=== PATIENT | female | born 1980 | race Caucasian/White ===

== ENCOUNTER 2023-09-13 12:42 | Outpatient (OUT) | payer MEDICARE, MEDICAID, SELFPAY ==
--- NOTE | 2023-09-13 13:00 | CA_ITS ---
The [facility] Test Date: 2023-09-13 Pat Name: APRIL LINARES Department: Room: - Gender: Female Fiber Optics Engineer: : 1980 Requested By: MO MUKHERJEE Order Number: [id number] Reading MD: KENDALL BRANCH Interpretive Statements Biphasic doppler waveforms. PVR waveforms with normal upstroke, blunted amplitude and dicortic notch Right: - normal MATT Left: - normal MATT IMpression: Normal arterial evaluation of the lower extremities without hemodynamic impairment of the B/L lower extremities at rest. (right MATT 1.20, left MATT 1.15) Electronically Signed On 09-15-2023 7:33:57 EDT by KENDALL BRANCH
== END 2023-09-13 12:43 | disposition home or self-care (01) ==
LOC: CARD 12:46
PROVIDERS: PCP Family Medicine; Visit Provider Family Medicine
DX: L97.511 Non-pressure chronic ulcer of other part of right foot limited to breakdown of skin (principal); I99.8 Other disorder of circulatory system; I73.9 Peripheral vascular disease, unspecified
CPT/HCPCS: 93922

== ENCOUNTER 2023-10-24 14:10 | Outpatient (OUT) | payer MEDICARE, MEDICAID, SELFPAY ==
--- NOTE | 2023-10-24 14:18 | XR_ITS ---
The [address] [address] Patient Name: APRIL LINARES MRN: [id number] date: 1980 Sex: F Assigned Patient Location: RAD Current Patient Location: [facility] Accession/Order Number: [id number] Exam Date: 10/24/2023 14:20 Report Date: 10/24/2023 16:11 At the request of: MO MUKHERJEE Procedure: XR ankle RT min 3V PROCEDURE: XR ankle RT min 3V COMPARISON: None. HISTORY: Sprain of right ankle S93.401A FINDINGS: BONES:No fracture, acute abnormality, or significant arthropathy. SOFT TISSUES:Moderate diffuse soft tissue swelling EFFUSION:Moderate joint effusion OTHER: Negative. XR/XR ankle RT min 3V IMPRESSION: Soft tissue swelling and joint effusion with no acute fracture Electronically authenticated by: TONI ALBARADO Date: 10/24/2023 16:11
== END 2023-10-24 14:11 | disposition home or self-care (01) ==
LOC: RAD 14:13
PROVIDERS: PCP Family Medicine; Visit Provider Family Medicine
DX: S93.401A Sprain of unspecified ligament of right ankle, initial encounter (principal); M25.471 Effusion, right ankle
CPT/HCPCS: 73610

== ENCOUNTER 2025-05-24 14:40 | Outpatient (OUT) | payer MEDICARE, MEDICAID, SELFPAY ==
--- OUTSIDE RECORDS SUMMARY | 2025-05-24 14:48 | XMS_ITS | Patient Health Record ---
Author Organization [facility] Address [address] [place], [place] [address] Care Team Providers Care Meter Reading Clerk Name Role Phone Aleta Mora Unavailable [phone] Allergies Allergen (clinical drug ingredient) Drug/Non Drug Allergy documented on EMR Reaction Allergy Type Onset Date Status Substance with penicillin structure and antibacterial mechanism of action (substance) Penicillins Unknown Drug Allergy 08/06/2012 Active Reason For Referral No Information Medications Medication SIG (Take, Route, Frequency, Duration) Notes Start Date End Date Status Aspirin 325 MG Tablet TAKE 1 TABLET BY MOUTH ROWAN LY Oral; Duration: 90 Days ActiveLevothyroxine Sodium 125 MCG TabletTAKE 1 TABLET BY MOUTH DAILY Oral; Duration: 90 DaysActiveVitamin D3 50 MCG (2000 UT) TabletTAKE 1 TABLET BY MOUTH DAILY Oral; Duration: 90 DaysActiveOmeprazole 20 MG Capsule Delayed ReleaseTAKE 1 CAPSULE BY MOUTH DAILY Oral; Duration: 90 DaysActiveLoratadine 10 MG Tablet TAKE 1 TABLET BY MOUTH DAILY Oral; Duration: 90 DaysActiveProAir HFA 108 (90 Base) MCG/ACT Aerosol SolutionINHALE 2 (TWO) puffs BY MOUTH EVERY 4 HOURS NEEDED Inhalation; Duration: 17 DaysActiveBenzonatate 200 MG CapsuleTAKE 1 CAPSULE BY MOUTH THREE TIMES DAILY NEEDED Oral; Duration: 10 DaysActive Azithromycin 250 MG TabletTAKE 2 TABLETS by mouth today, THEN take 1 TABLET once a day FOR the next 4 DAYS. Oral; Duration: 5DaysActivedexAMETHasone 6 MG Tablet TAKE 1 TABLET BY MOUTH DAILY Oral; Duration: 6 DaysActive Social History Sex Assigned At : Social History Observation Description Sex Assigned At Female Social History Additional DetailsCategorySocial InfoOptionsDetailsMigrated Social History Migrated Social History ALCOHOL: Does not give any significant history of alcohol usage, ProblemStatus: Inactive, , Caffeine Use, COMMENTS: occasionally, ProblemStatus: Active, , CAFFEINE: Consumes a minimal amount of caffeinated beverages daily, ProblemStatus: Inactive, , Current tobacco use, AttributeTitle: Never smoker, ProblemStatus: Active, , MARITAL STATUS: Single, ProblemStatus: Inactive, , No Drug Use, ProblemStatus: Active, , No significant stress issues with home, family, personal relationships, or work, ProblemStatus: Inactive, , Non Drinker/No Alcohol Use, ProblemStatus: Active, , Non Smoker/No Tobacco Use, ProblemStatus: Inactive, , Patient feels safe in relationships, ProblemStatus: Active, , SEXUAL HISTORY: Never sexually active, ProblemStatus: Inactive Problems Problem Type SNOMED Code ICD Code Onset Dates Problem Status W/U Status Risk Notes Problem Tinea pedis (5431567) Tinea pedis (B35.3) ActiveconfirmedComment:Rx clotrimazole once daily after shower, recheck in one month.,ProblemHypothyroidism (94761873)Hypothyroid (244.9) (244.9)Active confirmedProblemHypothyroidism, acquired (244.) (244)03/29/2008ctiveconfirmed Comment:c/w levothyroxine as ordered check lab f/u in 2 mos or sooner if needed paperwork [facility], ProblemLaboratory test (68713682)Laboratory examination (Z01.89)Activeconfirmed Comment:For hypothyroidism.,ProblemGastroesophageal reflux disease (166916217) GERD (gastroesophageal reflux disease) (530.81) (530.81)ActiveconfirmedProblem Conjunctivitis (2828613)Conjunctivitis (H10.9)ActiveconfirmedProblemAcute cystitis (30485438)Cystitis, acute (595.0) (595.0)Activeconfirmed Comment:Finish Cipro course. Increase fluid intake Check C&S,Story:better, ProblemDysuria (10270730)Difficult or painful urination (R30.0)Activeconfirmed Comment:Dysuria, urine is clear. Reassured, no Rx needed.,Description:Dysuria ProblemDermatitis (453384263)Dermatitis, eczematoid (L30.9)Activeconfirmed Description:EczemaProblemChapped skin (354670098)Chapped skin (T69.8XXA)Active confirmedProblemDrug intolerance (96574531)Medication intolerance (Z78.9)Active confirmedComment:clotrimazole, for feet. Needs a D/C order.,Problem Conjunctivitis (1250075)Conjunctivitis of both eyes (372.30) (372.30)Active confirmedComment:Rx ciprofloxacin eye drops for 5 days.,ProblemAcute upper respiratory infection (97520251)URI (upper respiratory infection) (465.9) (465.9)ActiveconfirmedComment:Rx's rewritten for Tylenol, as requested by the staff; Also, at her mother's request, will D/C the ibuprofen and HC for her face;,ProblemAcute upper respiratory infection (23035710)Acute upper respiratory infection (J06.9)ActiveconfirmedProblemHistory and physical examination, school (63096376)Examination for school or camp (Z02.9)ActiveconfirmedComment:No problems identified; full participation as she is able.,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 Mother would prefer not to use any medications at this time.,ProblemOcclusion of cerebral artery with stroke (9072635739003)CVA (cerebral vascular accident) (434.91) (434.91)Activeconfirmed Comment:Functionallly improved, back to baseline, with normal ADLs. Discontinue PT.,ProblemAcute conjunctivitis of both eyes (5328056511)Acute conjunctivitis of both eyes (H10.33)Activeconfirmed Comment:RTC if problem persists or worsens. Form completed for care home., ProblemAllergic rhinitis (39126877)Allergic rhinitis (J30.9)Activeconfirmed ProblemDermatitis (828481908)Dermatitis (L30.9)ActiveconfirmedProblemHistory and physical examination, administrative (25704168)General medical examination for administrative purposes (V70.3) (V70.3)Activeconfirmed Comment:For camp. NO restrictions, forms completed (See copies in Scanned Documents), ProblemAmenorrhea (51851341)Absence, menstruation (626.0) (626.0)03/29/2008 ActiveconfirmedProblemHistory of cardiac surgery (878490222)H/O heart surgery (Z98.890)ActiveconfirmedComment:Percutaneous cath repair, doing well.,Description:History of heart surgeryProblemSinusitis, chronic (473.) (473) 03/29/2008ctiveconfirmedProblemBody tinea (46528052)Body tinea (B35.4)Active confirmedComment:Improving. Continue terbinafine, but just once daily until rash is gone. (they have plentlyof it left.),Description:Tinea corporisProblem Mucopurulent conjunctivitis (367576559)[place] eye (372.03) (372.03)Activeconfirmed ProblemGeneral examination of patient (265786726)Routine general medical examination at a health care facility (V70.0) (V70.0)ActiveconfirmedProblem Contraception care management (032090825)Contraception (V25.9) (V25.9)Active confirmedProblemReturn to work evaluation (Z76.89)ActiveconfirmedProblem Constipation (23106699)CN (constipation) (K59.00)Activeconfirmed Description:ConstipationProblemPrescription renewal (353772741)Medication refill (Z76.0)ActiveconfirmedProblemImpacted cerumen (70160854)Cerumen impaction (380.4) (380.4)ActiveconfirmedComment:right side completely resolved, the left with some residual wax, unable to easily irrigate clean. Will have them CONTINUE to use the drops in the left ear only, for 5 days, thenfollow up for recheck. She may need periodic 'prophylactic' irrigation in the future.,ProblemMedication refill (V68.1) (V68.1)ActiveconfirmedComment:clarification of acetaminophen order.,ProblemFebrile (933773953)Febrile (R50.9)ActiveconfirmedDescription:Fever ProblemRhinitis, allergic (477.) (477)04/07/2009ctiveconfirmedProblemJittery (R45.0)ActiveconfirmedComment:Possiblly related to the decongestant. Will just use plain loratadine.,Description:NervousnessProblemComplete trisomy 21 syndrome (03249714)Down's syndrome (758.0) (758.0)11/18/2007ctiveconfirmedProblem Gastroesophageal reflux disease (324281054)Reflux, esophageal (530.81) (530.81) 04/21/2009ctiveconfirmedProblemObesity (disorder) (413001755)Overweight and obesity (E66.3)03/29/2008ctiveconfirmedProblemJoint pain (27459908)Ache in joint (M25.50)11/18/2007Problem resolvedconfirmedDescription:Pain in joint ProblemImpacted cerumen (47773860)Cerumen impaction (H61.20)03/29/2008Problem resolvedconfirmedDescription:Impacted cerumenProblemAbdominal pain (52810033) Abdominal pain (R10.9)08/01/2007Problem resolvedconfirmedProblemImpaction, intestine (560.3) (560.3)05/07/2008Problem resolvedconfirmedProblemAcute upper respiratory infection (80394185)Acute upper respiratory infection of multiple sites (J06.9)07/27/2008Problem resolvedconfirmedProblemSinusitis, acute (461.) (461)08/01/2007Problem resolvedconfirmedProblemConjunctivitis, acute (372.0) (372.0)09/01/2008Problem resolvedconfirmed Plan Of Treatment No Information Insurance Providers Payer Name Payer Address Payer Phone Subscriber Number Group Number Insured Name Patient Relationship to Insured Coverage Start Date Coverage End Date DMedicaid [address] [place], [place] [id number] Gary Howard - patient is the [id number] 2022 Medical (General) History Medical History History ICD Code Absence, menstruation (626.0), ProblemSt atus: Active, , Cerebrovascular Accident, COMMENTS: 2011, ProblemStatus: Active, ,Down's syndrome (758.0), ProblemStatus: Active, ,Hypothyroidism, acquired (244.), ProblemStatus: Active, ,Overweight and obesity, ProblemStatus: Active, ,Reflux, esophageal (530.81), ProblemStatus: Active, ,Rhinitis, allergic (477.), ProblemStatus: Active, ,Sinusitis, chronic (473.), ProblemStatus: Active, , Ventricular Septal Defect, ProblemStatus: Active, ,Surgical History Surgery Date(Month/Year) Heart Surgery, ProblemStatus: Active, S/P tonsillectomy and adenoidectomy (V45.89), ProblemStatus: Active,
--- OUTSIDE RECORDS SUMMARY | 2025-05-24 14:48 | XMS_ITS | Clinical Summary ---
Author Organization [facility] Address [address] [place] [address] Care Team Providers Care Petroleum Laboratory Technician Name Role Phone Unavailable Primary Care Provider Unavailabl e Allergies Active AllergyReactionsCriticalityNoted ZubtThsyzhznNexzveywxlj41/13/2009 rash Medications * This document contains information received from the source organization and may not represent a complete record from that organization. MedicationSigDispense QuantityRefillsLast FilledStart DateEnd DateStatus COMPOUNDED PRESCRIPTION control microgestin 1.5-30 mg.-mcg 1 tab nzkju731ctive LAMOTRIGINE 200 MG TAB take one daily at mwmiily496ctive acetaminophen(TYLENOL EXTRA STRENGTH 500 MG TAB) Take two(2) tablets every six(6) hours as needed for pain.ctive IBUPROFEN 200 MG TAB Take 1-2 tablet's) every four(4) to six(6) hours as needed for pain. Active LEVOTHYROXINE 100 MCG TAB Take one(1) tablet daily.ctive docusate sodium(COLACE 100 MG CAP) Take one(1) tablet once ogxls142ctive loratadine(CLARITIN 10 MG TAB) Take one(1) tablet daily as needed for allergy symptoms.ctive mometasone furoate(NASONEX 50 MCG/ACTUATION SPRAY) Serafina twice in each nostril once daily.ctive lactulose(ENULOSE 10 GRAM/15 ML ORAL SOLN) 15 cc. po daily as needed hold if has bm a agt009ctive MULTIVITAMIN TAB Take one(1) tablet daily.ctive clindamycin phosphate(CLEOCIN T 1 % TOPICAL GEL) as trhgqn013ctive polyethylene glycol 3350(MIRALAX 100 % ORAL POWDER) 17 grams in juice or fluid as needed if no bm in 2 mxql972ctive Active Problems ProblemNoted DateDiagnosed DateOther and unspecified anterior pituitary ilxceewpqawtj68/13/2009Unspecified grerepmgpzllkh48/13/2009Down's syndrome 07/16/2008 Social History Tobacco UseTypesPacks/DayYears UsedDateSmoking Tobacco: Never Assessed CommentsNoSex and Gender InformationValueDate RecordedSex Assigned at BirthNot on fileLegal LimUbgmuh17/02/2012 8:02 AM ESTGender IdentityNot on fileSexual OrientationNot on file Last Filed Vital Signs Vital SignReadingTime TakenCommentsBlood Laecftxl408/70007/16/2008 10:45 AM EST Bzbal603207/16/2008 10:45 AM ESTTemperature--Respiratory Rate--Oxygen Saturation-- Inhaled Oxygen Concentration--Euxkhk83.6 kg (182 lb 3.2 oz)07/16/2008 10:45 AM SSOVitoko123 cm (4' 11.06 )07/16/2008 10:45 AM ESTBody Mass Index36.7307/16/2008 10:45 AM EST Plan of Treatment Health MaintenanceDue DateLast DoneCommentsAnxiety Slevclgvi45/04/1998Depression Lclkzxbpk82/04/1998HIV Umikbvrpd98/04/1998Hepatitis C Gqpsudvwv78/04/1998 DTaP,Tdap,Td Vaccine (1 - Tdap)1998Hepatitis B Vaccine (1 of 3 - 19+ 3- dose series)1998Cervical Cancer Lvrbvdfbk41/04/2001HPV Vaccine (1 - 3-dose SCDM series)2006Mammogram Cuuncqwyq84/04/2020CT Wkhxnpggcplq17/04/2025 Cologuard (FIT-DNA)06/06/20248082Gnuydkjtdza85/04/2025olorectal Cancer Screening 2024Diabetes Yyqucxkrt01/04/2025Fecal Occult Blood2024Lipid Mspwztlbk75/04/8320Pndhpdgiefbnw69/04/2025ovid-19 Vaccine ( season) 2025Influenza Vaccine (#1)2025 Insurance MemberSubscriberPlan / Payer (Effective 2017-Present)Name:Kaylen Howard Relation to Subscriber:SpouseName:JACKLYN GRANT Date of :1952 (Home) Address: [address] [place] [address] Payer ID:Not on file Group ID:Not on file Type:Indemnity Address: [place] [id number]
--- OUTSIDE RECORDS SUMMARY | 2025-05-24 14:48 | XMS_ITS | Clinical Summary ---
Author Organization [facility] Address [address] [place] [address] Care Team Providers Care Plate Grainer Name Role Phone Jose Alberto MD Primary Care Provider [phone] Jose Alberto MD Unavailable Allergies No known active allergies Medications MedicationSigDispense QuantityRefillsLast FilledStart DateEnd DateStatus Docusate Sodium (DSS) 100 MG capsule Take 100 mg by mouth in the morning.Active aspirin 325 MG tablet Indications:Personal history of (corrected) congenital malformations of heart and circulatory systemTAKE 1 TABLET BY MOUTH DAILY 90 tablet 4Active cholecalciferol (Vitamin D-3) 50 MCG (1999) tablet Indications:Mild vitamin D deficiencyTAKE 1 TABLET BY MOUTH IN THE MORNING 30 tablet 4Active omeprazole (PriLOSEC) [address] capsule Indications:Gastro-esophageal reflux disease without esophagitisTAKE 1 CAPSULE BY MOUTH DAILY 90 capsule 5Active fludrocortisone (Florinef) 0.1 MG tablet Indications:Autonomic dysfunctionTAKE 1 TABLET BY MOUTH DAILY 30 tablet 5Active Allergy Relief 10 MG tablet Indications:Allergic rhinitis due to pollenTAKE 1 TABLET BY MOUTH DAILY 90 tablet 5Active levothyroxine (Synthroid, Levoxyl) 125 MCG tablet Indications:Hypothyroidism, unspecifiedTAKE 1 TABLET BY MOUTH DAILY 90 tablet 5Active fluticasone (Flonase) 50 MCG/ACT nasal spray Indications:Seasonal allergic rhinitis due to pollenAdminister 2 (TWO) sprays into each nostril Daily Shake gently. Before first use, prime pump. Afteruse, clean tip and replace cap 16 g 5Active Active Problems ProblemNoted DateDiagnosed DateAbscess of right leg01/19/2025 Assessment & Plan (01/19/2025 2:07 PM EDT): Recent bump and seemed to have abscess but resolved. Monitor. In future try neosporin. Autonomic txdeyllebtj66/20/2024 Assessment & Plan (10/21/2023 11:34 AM EDT): Multiple syncopal episodes and BP low. Not able to describe symptoms but likely NSC. Start florinefand continue with increased fluids. Encounter for long-term (current) use of upizemvjnvu56/30/2024Obesity (BMI 30-39.9)10/01/2023hronic rrduwhxmgzzf26/28/2024 Assessment & Plan (10/06/2024 2:23 PM EDT): Occasional symptoms and increase fiber. Increase water intake. Use miralax PRN. Assessment & Plan (03/30/2024 3:23 PM EDT): Occasional symptoms and increase fiber. Increase water intake. Use miralax PRN. Assessment & Plan (10/01/2023 3:13 PM EDT): Occasional symptoms and increase fiber. Increase water intake. Use miralax PRN. Down's syndrome ([facility])08/29/2023 Assessment & Plan (10/06/2024 2:23 PM EDT): No behavior problems and monitor. Assessment & Plan (03/30/2024 3:23 PM EDT): No behavior problems and monitor. Assessment & Plan (10/01/2023 3:13 PM EDT): No behavior problems and monitor. Assessment & Plan (08/29/2023 3:30 PM EDT): Patient not able to effectively communicate and need testing. Gastroesophageal reflux disease without eokfwhrcfhx87/28/2024 Assessment & Plan (10/06/2024 2:23 PM EDT): Symptoms controlled with omeprazole and continue. Assessment & Plan (03/30/2024 3:23 PM EDT): Symptoms controlled with omeprazole and continue. Assessment & Plan (10/01/2023 3:14 PM EDT): Symptoms controlled with omeprazole and continue. Adult tcgltumfvszffb37/28/2024 Assessment & Plan (03/30/2024 3:22 PM EDT): Due to repeat labs. Assessment & Plan (10/01/2023 3:13 PM EDT): Due to repeat labs. Allergic rhinitis due to ibslfe5508/29/2023 Assessment & Plan (10/06/2024 2:23 PM EDT): Symptoms controlled with medication and continue. Assessment & Plan (03/30/2024 3:22 PM EDT): Symptoms controlled with medication and continue. Assessment & Plan (10/01/2023 3:13 PM EDT): Symptoms controlled with medication and continue. Vitamin D ockvhjxlgf12/28/2024 Resolved Problems ProblemNoted DateDiagnosed DateResolved DateInfluenza A0/ Assessment & Plan (07/30/2024 4:32 PM EST): Positive for influenza A and start tamiflu. Start prednisone for inflammation. Use sudafed or otherdecongestants as needed. Use Robitussin or Robitussin-DM for cough. Can use afrin for congestion but no longer than 3 days. Can use Mucinex to bring up phlegm. Use Motrin or Tylenol as needed for fever, aches, or pains. Increase fluid intake and rest. Should improve over next 5-7 days and if no better or worse call for re-evaluation. Right ankle mblbxu32 Assessment & Plan (10/21/2023 11:35 AM EDT): Recent injury and mild swelling. No point tenderness. Ice and elevate. Use motrin. Use LY wrap forsupport. If no improvement may need PT. Near xyxrrlj95Tinea pedis of both feet08/28/ Ischemia of toe Assessment & Plan (08/29/2023 3:29 PM EDT): Developed ulcer of toe and concerning for ischemia. Start bactrim for possible infection. Check duplex US lower Extremity. Ulcer of toe of right foot, limited to breakdown of skin/ Assessment & Plan (08/29/2023 3:29 PM EDT): Developed ulcer of toe and concerning for ischemia. Start bactrim for possible infection. Check duplex US lower Extremity. Lpzktylgiwqq95 Social History Tobacco UseTypesPacks/DayYears UsedDateSmoking Tobacco: NeverSmokeless Tobacco: Never Tobacco Cessation:Counseling Given: Not Answered CommentsUnknownSex and Gender InformationValueDate RecordedSex Assigned at BirthNot on fileLegal DjuAkdiud79/15/2023 8:11 PM EDTGender IdentityNot on fileSexual OrientationNot on file Last Filed Vital Signs Vital SignReadingTime TakenCommentsBlood Hqqdstrx532/64001/19/2025 1:34 PM EDT Lgrve0911/19/2025 1:34 PM PBYYeoefrsfmwv05.4 ??C (97.5 ??F)01/19/2025 1:34 PM EDTRespiratory Xhem744501/19/2025 1:34 PM EDTOxygen Petgpnttcg54%01/19/2025 1:34 PM EDTInhaled Oxygen Concentration--Fxsclv03.6 kg (160 lb)01/19/2025 1:34 PM EDT Moxvgp264.8 cm (4' 9 )01/19/2025 1:34 PM EDTBody Mass Index34.62001/19/2025 1:34 PM EDT Plan of Treatment Health MaintenanceDue DateLast DoneCommentsCT Rlpntjkwsyjq34/04/1980Colonoscopy 1979FIT-DNA1979FIT1979FOBT1979 8229Hajvzwxlthbag66/04/1980Pap Smear2000Cervical Cancer Zpszusnii65/04/2010HPV/Jnjvun5006/06/2009Mammogram 2019COVID-19 Vaccine ( season), 06/16/2020 Influenza Vaccine (#1), 03/13/2019, 03/27/2018Medicare Annual Wellness (AWV) (Patient Refused)Colorectal Cancer Krqizamiq81/06/2026Postponed from 1979 (Patient Refused)Pneumococcal Vaccine: Pediatrics (0 to 5 Years) and At-Risk Patients (6 to 64 Years)Aged Out No longer eligible based on patient's age to complete this topic Insurance Care Teams Team MemberRelationshipSpecialtyStart DateEnd Date Jose Alberto MD PCP - [facility]08/29/23 Jose Alberto MD [address] [place] [address] PCP - [facility]07/10/24
--- NOTE | 2025-05-24 14:49 | XR_ITS ---
The [address] [address] Patient Name: APRIL LINARES MRN: [id number] date: 1980 Sex: F Assigned Patient Location: [facility] Current Patient Location: Accession/Order Number: [id number] Exam Date: 05/24/2025 15:07 Report Date: 05/25/2025 10:31 At the request of: MO MUKHERJEE MD Procedure: XR hip BI w PEL 1V ADULT PELVIS WITH BILATERAL HIPS - 5 views CLINICAL HISTORY: Bilateral hip pain, greater on the left. No reported injury COMPARISON: None AP view of the pelvis as well as AP and frog-lateral views of both hips were obtained. No fracture, dislocation or bony destruction is seen. The hip joint spaces are symmetric. There is no significant hypertrophy. Sclerosis is seen at the SI joints. The soft tissues are unremarkable. XR/XR hip BI w PEL 1V IMPRESSION: NO ACUTE PLAIN FILM FINDINGS. Impression dictated by: Cheyenne Raymond M.D. 05/25/2025 10:31 AM Dictation Location: [employer] Electronically authenticated by: [id number] Date: 05/25/2025 10:31
== END 2025-05-24 14:41 | disposition home or self-care (01) ==
LOC: RAD 14:43
PROVIDERS: PCP Family Medicine; Visit Provider Family Medicine
DX: M16.12 Unilateral primary osteoarthritis, left hip (principal); M25.551 Pain in right hip
CPT/HCPCS: 73523

== ENCOUNTER 2025-05-26 14:09 | Emergency (ER) | payer MEDICARE, MEDICAID, SELFPAY ==
[2025-05-26 14:19] VITALS: BP 155/76; PULSE 76; TEMP 36.6; O2SAT 100; BMI 33.5
--- OUTSIDE RECORDS SUMMARY | 2025-05-26 14:38 | XMS_ITS | Clinical Summary ---
Author Organization [facility] Healthcare Address [address] [place] [address] Care Team Providers Care Risk Control Analyst Name Role Phone Jose Alberto MD Primary Care Provider [phone] Jose Alberto MD Unavailable Allergies No known [...] resolved. Monitor. In future try neosporin. Autonomic ndoeerklrfc38/20/2024 Assessment & Plan (10/21/2023 11:34 AM EDT): Multiple syncopal episodes and BP low. Not able to describe symptoms but likely NSC. Start florinefand continue with increased fluids. Encounter for long-term (current) use of qkmpxmbgnmy90/30/2024Obesity (BMI 30-39.9)10/01/2023hronic esegkczxkzth30/28/2024 Assessment & Plan (10/06/2024 2:23 PM EDT): Occasional symptoms and increase fiber. Increase water intake. Use miralax PRN. Assessment & Plan (03/30/2024 3:23 PM EDT): Occasional symptoms and increase fiber. Increase water intake. Use miralax PRN. Assessment & Plan (10/01/2023 3:13 PM EDT): Occasional symptoms and increase fiber. Increase water intake. Use miralax PRN. Down's syndrome ([facility])08/29/2023 Assessment & Plan (10/06/2024 2:23 PM EDT): No behavior problems and monitor. Assessment & Plan (03/30/2024 3:23 PM EDT): No behavior problems and monitor. Assessment & Plan (10/01/2023 3:13 PM EDT): No behavior problems and monitor. Assessment & Plan (08/29/2023 3:30 PM EDT): Patient not able to effectively communicate and need testing. Gastroesophageal reflux disease without cmclihbhuhh20/28/2024 Assessment & Plan (10/06/2024 2:23 PM EDT): Symptoms controlled with omeprazole and continue. Assessment & Plan (03/30/2024 3:23 PM EDT): Symptoms controlled with omeprazole and continue. Assessment & Plan (10/01/2023 3:14 PM EDT): Symptoms controlled with omeprazole and continue. Adult ywrkbfsvkmtlhd75/28/2024 Assessment & Plan (03/30/2024 3:22 PM EDT): Due to repeat labs. Assessment & Plan (10/01/2023 3:13 PM EDT): Due to repeat labs. Allergic rhinitis due to hofixd7708/29/2023 Assessment & Plan (10/06/2024 2:23 PM EDT): Symptoms controlled with medication and continue. Assessment & Plan (03/30/2024 3:22 PM EDT): Symptoms controlled with medication and continue. Assessment & Plan (10/01/2023 3:13 PM EDT): Symptoms controlled with medication and continue. Vitamin D xakxotkqvo04/28/2024 Resolved Problems ProblemNoted DateDiagnosed DateResolved DateInfluenza A0/ [...] or worse call for re-evaluation. Right ankle zehjpp74 Assessment & Plan (10/21/2023 11:35 AM EDT): Recent injury and mild swelling. No point tenderness. Ice and elevate. Use motrin. Use LY wrap forsupport. If no improvement may need PT. Near uojntpp08Tinea pedis of both feet08/28/ Ischemia of toe [...] possible infection. Check duplex US lower Extremity. Zunagjjfrdcy42 Social History Tobacco UseTypesPacks/DayYears UsedDateSmoking Tobacco: NeverSmokeless Tobacco: Never Tobacco Cessation:Counseling Given: Not Answered CommentsUnknownSex and Gender InformationValueDate RecordedSex Assigned at BirthNot on fileLegal XrrRshkfp61/15/2023 8:11 PM EDTGender IdentityNot on fileSexual OrientationNot on file Last Filed Vital Signs Vital SignReadingTime TakenCommentsBlood Uksiurhc721/64001/19/2025 1:34 PM EDT Snvnm9613/19/2025 1:34 PM THWAyqzuyqadce35.4 ??C (97.5 ??F)01/19/2025 1:34 PM EDTRespiratory Xrdn768901/19/2025 1:34 PM EDTOxygen Hbkeyamglo02%01/19/2025 1:34 PM EDTInhaled Oxygen Concentration--Snpiqb38.6 kg (160 lb)01/19/2025 1:34 PM EDT Glrkft359.8 cm (4' 9 )01/19/2025 1:34 PM EDTBody Mass Index34.62001/19/2025 1:34 PM EDT Plan of Treatment Health MaintenanceDue DateLast DoneCommentsCT Cyahfnoewmeh55/04/1980Colonoscopy 1979FIT-DNA1979FIT1979FOBT1979 2728Ddxlccucebysk01/04/1980Pap Smear2000Cervical Cancer Yttzltpha33/04/2010HPV/Caemvz2406/06/2009Mammogram 2019Influenza Vaccine (#1), 03/13/2019, 03/27/2018 Medicare Annual Wellness (AWV) (Patient Refused)Colorectal Cancer Vjtxudfio91/06/2026Postponed from 1979 (Patient Refused) Pneumococcal Vaccine: Pediatrics (0 to 5 Years) and At-Risk Patients (6 to 64 Years)Aged OutNo longer eligible based on patient's age to complete this topic Insurance Care Teams Team MemberRelationshipSpecialtyStart DateEnd Jose Alberto MD [facility]08/29/23 Jose Alberto MD [address] [place] [address] [facility]07/10/24
--- OUTSIDE RECORDS SUMMARY | 2025-05-26 14:38 | XMS_ITS | Clinical Summary ---
Author Organization [facility] Address [address] [place] [address] Care Team Providers Care Crm Administrator Name Role Phone Unavailable Primary Care Provider Unavailabl e Allergies Active AllergyReactionsCriticalityNoted FuzuOldzcyxgCxyzcwixruy81/13/2009 rash Medications * This document contains information received from the source organization and may not represent a complete record from that organization. MedicationSigDispense QuantityRefillsLast FilledStart DateEnd DateStatus COMPOUNDED PRESCRIPTION control microgestin 1.5-30 mg.-mcg 1 tab eyvak227ctive LAMOTRIGINE 200 MG TAB take one daily at llvvknp458ctive acetaminophen(TYLENOL EXTRA STRENGTH 500 MG TAB) Take two(2) tablets every six(6) hours as needed for pain.ctive IBUPROFEN 200 MG TAB Take 1-2 tablet's) every four(4) to six(6) hours as needed for pain. Active LEVOTHYROXINE 100 MCG TAB Take one(1) tablet daily.ctive docusate sodium(COLACE 100 MG CAP) Take one(1) tablet once lzppu315ctive loratadine(CLARITIN 10 MG TAB) Take one(1) tablet daily as needed for allergy symptoms.ctive mometasone furoate(NASONEX 50 MCG/ACTUATION SPRAY) [place] twice in each nostril once daily.ctive lactulose(ENULOSE 10 GRAM/15 ML ORAL SOLN) 15 cc. po daily as needed hold if has bm a eaf944ctive MULTIVITAMIN TAB Take one(1) tablet daily.ctive clindamycin phosphate(CLEOCIN T 1 % TOPICAL GEL) as xsbfwx758ctive polyethylene glycol 3350(MIRALAX 100 % ORAL POWDER) 17 grams in juice or fluid as needed if no bm in 2 jopt157ctive Active Problems ProblemNoted DateDiagnosed DateOther and unspecified anterior pituitary llijipwwmfzpa63/13/2009Unspecified /13/2009Down's syndrome 07/16/2008 Social History Tobacco UseTypesPacks/DayYears UsedDateSmoking Tobacco: Never Assessed CommentsNoSex and Gender InformationValueDate RecordedSex Assigned at BirthNot on fileLegal ObcNsutqb31/02/2012 8:02 AM ESTGender IdentityNot on fileSexual OrientationNot on file Last Filed Vital Signs Vital SignReadingTime TakenCommentsBlood Wiinlrmt679/70007/16/2008 10:45 AM EST Nldng024007/16/2008 10:45 AM ESTTemperature--Respiratory Rate--Oxygen Saturation-- Inhaled Oxygen Concentration--Upseub57.6 kg (182 lb 3.2 oz)07/16/2008 10:45 AM TXEJifauk386 cm (4' 11.06 )07/16/2008 10:45 AM ESTBody Mass Index36.7307/16/2008 10:45 AM EST Plan of Treatment Health MaintenanceDue DateLast DoneCommentsAnxiety Nsltvzrrw92/04/1998Depression Woygwmxfj48/04/1998HIV Fgvoudpoi24/04/1998Hepatitis C Xzfvzijoo48/04/1998 DTaP,Tdap,Td Vaccine (1 - Tdap)1998Hepatitis B Vaccine (1 of 3 - 19+ 3- dose series)1998Cervical Cancer Woslowbsf80/04/2001HPV Vaccine (1 - 3-dose SCDM series)2006Mammogram Jngtacgxa74/04/2020CT Bpazarkgptzl50/04/2025 Cologuard (FIT-DNA)06/06/20246302Bodswffjjkh27/04/2025olorectal Cancer Screening 2024Diabetes Pimudownm87/04/2025Fecal Occult Blood2024Lipid Ushkpjuop84/04/9590Gvjckydljiytl87/04/2025ovid-19 Vaccine ( season) 2025Influenza Vaccine (#1)2025 Insurance MemberSubscriberPlan / Payer (Effective 2017-Present)Name:Kaylen Howard Relation to Subscriber:SpouseName:JACKLYN GRANT Date of :1952 (Home) Address: [address] [place] [address] Payer ID:Not on file Group ID:Not on file Type:Indemnity Address: [place] [id number]
--- OUTSIDE RECORDS SUMMARY | 2025-05-26 14:38 | XMS_ITS | Patient Health Record ---
Author Organization [facility] Address [address] [place] [place], [place] [id number] Care Team Providers Care Data Reduction Technician Name Role Phone Aleta Mora Unavailable [phone] Allergies Allergen (clinical drug ingredient) Drug/Non Drug [...] W/U Status Risk Notes Problem Tinea pedis (9880508) Tinea pedis (B35.3) ActiveconfirmedComment:Rx clotrimazole once daily after shower, recheck in one month.,ProblemHypothyroidism (78868306)Hypothyroid (244.9) (244.9)Active confirmedProblemHypothyroidism, acquired (244.) (244)03/29/2008ctiveconfirmed Comment:c/w levothyroxine as ordered check lab f/u in 2 mos or sooner if needed paperwork completed [facility], ProblemLaboratory test (44078957)Laboratory examination (Z01.89)Activeconfirmed Comment:For hypothyroidism.,ProblemGastroesophageal reflux disease (310468384) GERD (gastroesophageal reflux disease) (530.81) (530.81)ActiveconfirmedProblem Conjunctivitis (8973676)Conjunctivitis (H10.9)ActiveconfirmedProblemAcute cystitis (88688809)Cystitis, acute (595.0) (595.0)Activeconfirmed Comment:Finish Cipro course. Increase fluid intake Check C&S,Story:better, ProblemDysuria (35688479)Difficult or painful urination (R30.0)Activeconfirmed Comment:Dysuria, urine is clear. Reassured, no Rx needed.,Description:Dysuria ProblemDermatitis (801696997)Dermatitis, eczematoid (L30.9)Activeconfirmed Description:EczemaProblemChapped skin (076036974)Chapped skin (T69.8XXA)Active confirmedProblemDrug intolerance (13368905)Medication intolerance (Z78.9)Active confirmedComment:clotrimazole, for feet. Needs a D/C order.,Problem Conjunctivitis (5703154)Conjunctivitis of both eyes (372.30) (372.30)Active confirmedComment:Rx ciprofloxacin eye drops for 5 days.,ProblemAcute upper respiratory infection (62500269)URI (upper respiratory infection) (465.9) (465.9)ActiveconfirmedComment:Rx's rewritten for Tylenol, as requested by the staff; Also, at her mother's request, will D/C the ibuprofen and HC for her face;,ProblemAcute upper respiratory infection (87869439)Acute upper respiratory infection (J06.9)ActiveconfirmedProblemHistory and physical examination, school (65774313)Examination for school or camp (Z02.9)ActiveconfirmedComment:No problems identified; full participation as she is able.,ProblemComplete trisomy 21 syndrome (94470547)Down syndrome (758.0) (758.0)Activeconfirmed Comment:Stable, but with some behavioral issues. Mother would prefer not to use any medications at this time.,ProblemOcclusion of cerebral artery with stroke (0096798411528)CVA (cerebral vascular accident) (434.91) (434.91)Activeconfirmed Comment:Functionallly improved, back to baseline, with normal ADLs. Discontinue PT.,ProblemAcute conjunctivitis of both eyes (7361710910)Acute conjunctivitis of both eyes (H10.33)Activeconfirmed Comment:RTC if problem persists or worsens. Form completed for shelter., ProblemAllergic rhinitis (16708294)Allergic rhinitis (J30.9)Activeconfirmed ProblemDermatitis (957110512)Dermatitis (L30.9)ActiveconfirmedProblemHistory and physical examination, administrative (40636167)General medical examination for administrative purposes (V70.3) (V70.3)Activeconfirmed Comment:For camp. NO restrictions, forms completed (See copies in Scanned Documents), ProblemAmenorrhea (41636596)Absence, menstruation (626.0) (626.0)03/29/2008 ActiveconfirmedProblemHistory of cardiac surgery (922172636)H/O heart surgery (Z98.890)ActiveconfirmedComment:Percutaneous cath repair, doing well.,Description:History of heart surgeryProblemSinusitis, chronic (473.) (473) 03/29/2008ctiveconfirmedProblemBody tinea (57275488)Body tinea (B35.4)Active confirmedComment:Improving. Continue terbinafine, but just once daily until rash is gone. (they have plentlyof it left.),Description:Tinea corporisProblem Mucopurulent conjunctivitis (458677065)Baldwin eye (372.03) (372.03)Activeconfirmed ProblemGeneral examination of patient (011832254)Routine general medical examination at a health care facility (V70.0) (V70.0)ActiveconfirmedProblem Contraception care management (929675260)Contraception (V25.9) (V25.9)Active confirmedProblemReturn to work evaluation (Z76.89)ActiveconfirmedProblem Constipation (87601681)CN (constipation) (K59.00)Activeconfirmed Description:ConstipationProblemPrescription renewal (517563618)Medication refill (Z76.0)ActiveconfirmedProblemImpacted cerumen (29104722)Cerumen impaction (380.4) (380.4)ActiveconfirmedComment:right side completely resolved, the left with some residual wax, unable to easily irrigate clean. Will have them CONTINUE to use the drops in the left ear only, for 5 days, thenfollow up for recheck. She may need periodic 'prophylactic' irrigation in the future.,ProblemMedication refill (V68.1) (V68.1)ActiveconfirmedComment:clarification of acetaminophen order.,ProblemFebrile (158429275)Febrile (R50.9)ActiveconfirmedDescription:Fever ProblemRhinitis, allergic (477.) (477)04/07/2009ctiveconfirmedProblemJittery (R45.0)ActiveconfirmedComment:Possiblly related to the decongestant. Will just use plain loratadine.,Description:NervousnessProblemComplete trisomy 21 syndrome (83902885)Down's syndrome (758.0) (758.0)11/18/2007ctiveconfirmedProblem Gastroesophageal reflux disease (811527485)Reflux, esophageal (530.81) (530.81) 04/21/2009ctiveconfirmedProblemObesity (disorder) (120850340)Overweight and obesity (E66.3)03/29/2008ctiveconfirmedProblemJoint pain (93640045)Ache in joint (M25.50)11/18/2007Problem resolvedconfirmedDescription:Pain in joint ProblemImpacted cerumen (15417033)Cerumen impaction (H61.20)03/29/2008Problem resolvedconfirmedDescription:Impacted cerumenProblemAbdominal pain (59435498) Abdominal pain (R10.9)08/01/2007Problem resolvedconfirmedProblemImpaction, intestine (560.3) (560.3)05/07/2008Problem resolvedconfirmedProblemAcute upper respiratory infection (33234142)Acute upper respiratory infection of multiple sites (J06.9)07/27/2008Problem resolvedconfirmedProblemSinusitis, acute (461.) (461)08/01/2007Problem resolvedconfirmedProblemConjunctivitis, acute (372.0) (372.0)09/01/2008Problem resolvedconfirmed Plan Of Treatment No Information Insurance Providers Payer Name Payer Address Payer Phone Subscriber Number Group Number Insured Name Patient Relationship to Insured Coverage Start Date Coverage End Date DMedicaid [address] [place], [place] [id number] Gary Howard - patient is the [id number] 2022 Medical (General) History Medical History History [...]
--- OUTSIDE RECORDS SUMMARY | 2025-05-26 14:38 | XMS_ITS | Clinical Summary ---
Author Organization [facility] tem Address [facility] [address] [place] [address] Care Team Providers Care Judicial Clerk Name Role Phone Twin Terrell MD Primary Care Provider Allergies Active AllergyReactionsCriticalityNoted WmchHfqasxnnVlgxaytieuy87/11/2018 Medications MedicationSigDispense QuantityRefillsLast FilledStart DateEnd DateStatus DOCUSATE SODIUM (COLACE ORAL) Take 200 mg by mouth daily.Active loratadine 10 mg capsule Take by mouth.Active aspirin 325 mg tablet Take 325 mg by mouth daily.Active B complex-vitamin C-folic acid (NEPHROCAPS) 1 mg capsule Take 1 capsule by mouth daily.Active docusate sodium (COLACE) 100 mg capsule Take 100 mg by mouth daily.Active fluticasone (FLONASE) 50 mcg/actuation nasal spray Administer 1 spray into each nostril daily.Active levothyroxine (SYNTHROID, LEVOTHROID) 125 MCG tablet Take 125 mcg by mouth daily.Active cholecalciferol, vitamin D3, (VITAMIN D3) 1,000 unit capsule Take 1,000 Units by mouth daily.Active omeprazole (PriLOSEC) 20 mg capsule Take 20 mg by mouth daily.Active Active Problems ProblemNoted DateDiagnosed DateS/P closure of congenital atrial septal defect by percutaneous transcatheter nlqiirtvx38/10/2018Peripheral auolacqf19/10/2018 Cerebral ewvlnyayom34/30/2012 Overview (12/10/2017): Overview: Replacing Inactive Diagnoses PFO (patent foramen ovale)10/31/2011VSD (ventricular septal defect)10/31/2011 Down's ceklmque09/13/2009Other and unspecified anterior pituitary hyperfunction 07/16/20088149Zezdrfjhmwqmgr21/13/2009 Resolved Problems ProblemNoted DateDiagnosed DateResolved DateASD (atrial septal defect)12/10/2017 12/10/2017 Family History Medical HistoryRelationNameCommentsNo Known ProblemsBrotherHigh Cholesterol MotherHypertensionMotherThyroid IssuesSisterRelationNameStatusCommentsBrother AliveFatherAliveMotherAliveSisterAlive Social History Tobacco UseTypesPacks/DayYears UsedDateSmoking Tobacco: NeverSmokeless Tobacco: NeverChildcareAnswerDate ImvtgredNgxrmirtrXyjylpq61/12/2019EmploymentAnswerDate WgyuogjsQtdqrspeijKwqosss97/12/2019Purpose - LifeAnswerDate RecordedPurpose and direction in fgjjBkvjldt79/12/2021CommentsUnknownSex and Gender InformationValueDate RecordedSex Assigned at BirthNot on fileLegal SexFemale 01/06/2015 11:31 AM EDTGender IdentityNot on fileSexual OrientationNot on file Last Filed Vital Signs Vital SignReadingTime TakenCommentsBlood Lsdptycp38/7605/14/2020 3:15 PM EST Kwcos340505/14/2020 12:30 PM UGQFribisxsuly44.6 ??C (97.8 ??F)05/14/2020 12:26 PM ESTRespiratory Llya069707/15/2019 3:25 PM ESTOxygen Nodyysumos60%05/14/2020 3:09 PM ESTInhaled Oxygen Concentration--Atrokg83.4 kg (153 lb)05/14/2020 12:32 PM LBETmzqdr705.8 cm (4' 9 )05/14/2020 12:26 PM ESTBody Mass Index33.11107/15/2019 12:26 PM EST Plan of Treatment Health MaintenanceDue DateLast DoneCommentsDepression Xdnevjlag40/04/1992Tobacco Yypedanxk67/04/1992Adult BMI Dvwbxsnwn53/04/1998DTaP,Tdap and Td Vaccines (1 - Tdap)1998Pap Smear2000Influenza Veitoiu48/510/11/2019, 03/13/2019, 03/27/2018 Medical Devices Not on file Insurance Care Teams Team MemberRelationshipSpecialtyStart Date Twin Terrell MD [address] [place] [address] PCP - GeneralFamily Medicine07/14/17
--- NOTE | 2025-05-26 14:42 | ED_ITS ---
Documented by User: ALEJANDRA Zamora 05/26/25 16:52 HPI HPI - General Adult General Chief complaint: Urogenital-Female Stated complaint: HIP, BACK & ABD PAIN, URINARY ISSUES Time Seen by Provider: 05/26/25 14:12 Source: family Mode of arrival: walk-in Limitations: altered mental status History of Present Illness HPI narrative: Patient is a 44-year-old female with a PMH of Down syndrome brought to the emergency department by her mother with complaints of left-sided hip or abdominal pain that started about 5 to 6 days ago without injury. Patient's mot her provides history and states that she was pointing at her hip and first as she is limping. She has had x-ray previously that revealed bone spurs /degenerative changes and she did have an x-ray [address] days [address] ordered [address] Resendiz, her PCP, that did not show any abnormality. She does have a history of constipation and did tell her mother that she last had a bowel movement this morning. She takes Colace daily and MiraLAX as needed. Her mother states she appears bloated. Her mother is also worried about a UTI as the patient will states that it hurts down there . Patient's mother states she has not menstruated since she had a stroke at age 31. Related Data Home Medications ?Medication ?Instructions ?Recorded ?Confirmed aspirin 325 mg tablet 325 mg PO DAILY 05/26/25 fludrocortisone 0.1 mg tablet 0.1 mg PO DAILY 05/26/25 05/26/25 levothyroxine 125 mcg tablet 125 mcg PO DAILY 05/26/25 05/26/25 loratadine 10 mg tablet (Allergy 10 mg PO BID 05/26/25 05/26/25 Relief (loratadine)) omeprazole 20 mg capsule,delayed 20 mg PO DAILY 05/26/25 release Opioid HPI Opioid Management Most Recent Opioid Data: Last Pain Scale 2 Today, 14:25 Review of Systems ROS Status of ROS 10 or more systems reviewed and unremark able except as noted in history and below PFSH PFSH Social History Little interest or pleasure in doing things: not at all Feeling down, depressed, or hopeless: not at all Exam Narrative Exam Narrative: General: No distress, age-appropriate Skin: Warm, dry, no pallor. No rash. Head: Normocephalic, atraumatic. Neck: Supple, non-tender. Eye: Pupils are equal, round and EOMI. No scleral icterus. Ears, Nose, Mouth, and Throat: No nasal mucosal hypertrophy. Oral mucosa is moist, no posterior oropharynx erythema, uvula is mid-line Cardiovascular: Regular Rate and Rhythm without murmur, gallop or rub. Respiratory: No accessory muscle use or respiratory distress. Lungs are clear to auscultation, no wheezing, rales or rhonchi Chest Wall: no tenderness Musculoskeletal: Full ROM of all extremities, full pain free passive ROM of left hip. No thigh, knee, calf, or ankle or popliteal tenderness. GI: Abdomen is soft, non-distended, LLQ tender to palpation. No masses appreciated. No rebound, guarding, or rigidity noted. Neurological: Alert and oriented x 3. No cranial nerve dysfunction observed. No truncal ataxia. Moves all extremities. Sensation intact. Psychiatric: Cooperative and interactive. Normal mood and affect. Constitutional Vital Signs, click to edit/add: Last Vital Signs Temp 97.8 F 05/26/25 14:19 Pulse 68 05/26/25 16:08 Resp 16 05/26/25 16:08 BP 153/75 H 05/26/25 16:08 Pulse Ox 98 05/26/25 16:08 O2 Del Method Room Air 05/26/25 16:08 Documenting provider has reviewed patient's vital signs: yes External Female Exam: normal appearance of the urethra and erythema (Mild labia minora erythema) Course Vital Signs Vital signs: Vital Signs Temperature 97.8 F 05/26/25 14:19 Pulse Rate 76 05/26/25 14:19 Respiratory Rate 18 05/26/25 14:19 Blood Pressure 155/76 H 05/26/25 14:19 Pulse Oximetry 100 05/26/25 14:19 Oxygen Delivery Method Room Air 05/26/25 14:19 Temperature 97.8 F 05/26/25 14:19 Pulse Rate 68 05/26/25 16:08 Respiratory Rate 16 05/26/25 16:08 Blood Pressure 153/75 H 05/26/25 16:08 Pulse Oximetry 98 05/26/25 16:08 Oxygen Delivery Method Room Air 05/26/25 16:08 Medical Decision Making MDM Narrative Medical decision making narrative: This is a 44-year-old female with a history of Down syndrome and prior R sided CVA, presenting with several days of left-sided hip and abdominal pain with limp. History was obtained from the patient?s mother due to limited patient communication. Laboratory evaluation was reassuring with a WBC of 4.5 without left shift, normal CMP and lipase, negative hCG, and urinalysis without evidence of infection or hematuria. CT abdomen and pelvis without contrast demonstrated urinary bladder wall thickening, which may represent bladder underdistention versus early cystitis, without evidence of bowel obstruction, appendicitis, or other acute intra-abdominal process. No constipation per my review. Review of a left hip x-ray obtained two days prior showed no fracture or dislocation, though there was increased joint space narrowing on the left compared to the right, consistent with degenerative changes. Given the absence of systemic signs of infection, normal laboratory studies, and stable clinical presentation, no acute surgical or orthopedic intervention was indicated. Results discussed with patient and her mother. The patient was felt to be stable for discharge with symptomatic management of constipation and pain, close outpatient follow-up with her primary care physician, and strict return precautions were discussed. Differential Diagnosis Differential Diagnosis: Constipation, UTI, nephrolithiasis, hip OA Lab Data Lab results reviewed: Yes I reviewed the patient's lab results Labs: Lab Results 05/26/25 05/26/25 Range/Units 14:42 14:48 WBC 4.5 (4.0-11.0) 10^3/uL RBC 4.08 L (4.20-5.40) 10^6/uL Hgb 13.9 (12.0-16.0) g/dL Hct 41.3 (36.0-48.0) % MCV 101.2 H (81.0-99.0) fL MCH 34.1 H (26.7-34.0) pg MCHC 33.7 (29.9-35.2) g/dL RDW 13.4 (11.0-15.0) % Plt Count 250 (150-450) 10^3/uL MPV 10.1 (9.5-13.5) fL Neut % (Auto) 61.1 (43.0-75.0) % Lymph % (Auto) 25.1 (20.5-60.0) % [place] % (Auto) 9.6 (1.7-12.0) % Eos % (Auto) 2.5 (0.9-7.0) % Baso % (Auto) 1.3 (0.2-2.0) % Neut # (Auto) 2.7 (1.4-6.5) 10^3/uL Lymph # (Auto) 1.1 L (1.2-3.8) 10^3/uL [place] # (Auto) 0.4 (0.3-0.8) 10^3/uL Eos # (Auto) 0.1 (0.0-0.7) 10^3/uL Baso # (Auto) 0.1 (0.0-0.1) 10^3/uL Abs Immat Gran (auto) 0.02 (0.00-0.03) 10^3/uL Imm/Tot Granulo (auto) 0.4 (0.0-0.5) % Sodium 142 (136-145) mmol/L Potassium 3.9 (3.5-5.1) mmol/L Chloride 106 (98-107) mmol/L Carbon Dioxide 31.5 (21.0-32.0) mmol/L Anion Gap 8.4 BUN 11.0 (7.0-18.0) mg/dL Creatinine 0.85 (0.55-1.02) mg/dL Est GFR ( Amer) >60 (>=60 mL/min/1.73m^2) Est GFR (Non-Af Amer) >60 (>=60 mL/min/1.73m^2) BUN/Creatinine Ratio 12.9 Glucose 69 L (74-106) mg/dL Calcium 8.7 (8.5-10.1) mg/dL Total Bilirubin 0.3 (0.2-1.0) mg/dL AST 15 (15-37) U/L ALT 18 (14-59) U/L Alkaline Phosphatase 97 (46-116) U/L Total Protein 7.0 (6.4-8.2) g/dL Albumin 3.1 L (3.4-5.0) g/dL Globulin 3.9 g/dL Albumin/Globulin Ratio 0.8 Lipase 34.0 (16.0-77.0) U/L Serum HCG, Qual Negative (NEGATIVE) Urine Color Lt. yellow (YELLOW) Urine Clarity Clear (CLEAR) Urine pH 6.0 (5.0-9.0) Ur Specific [place] <=1.005 A (1.005-1.025) Urine Protein Negative (NEG/TRACE) mg/dL Urine Glucose (UA) Negative (NEGATIVE) mg/dL Urine Ketones Negative (NEGATIVE) mg/dL Urine Occult Blood Negative (NEGATIVE) Urine Nitrite Negative (NEGATIVE) Urine Bilirubin Negative (NEGATIVE) Urine Urobilinogen 0.2 (0.2-1.0) EU/dL Ur Leukocyte Esterase Negative (NEGATIVE) Imaging Data CT scan - abdomen: Attestation: I have reviewed the pertinent imaging results. Radiologist's impression: ITS Impressions Abdomen/Pelvis CT 05/26/25 14:44 IMPRESSION: Urinary bladder wall thickening. Underdistention versus cystitis. Impression dictated by: Jesse Solomon M.D. 05/26/2025 3:48 PM Dictation Location: [facility] Electronically authenticated by: [id number] Y Date: 05/26/2025 15:48 Discharge Plan Discharge Chief Complaint: Urogenital-Female Clinical Impression: Limping without localized cause, Musculoskeletal back pain Patient Disposition: Home, Self-Care Time of Disposition Decision: 16:04 Condition: Good Mode of Transportation: Private Vehicle Prescriptions / Home Meds: No Action fludrocortisone 0.1 mg tablet 0.1 mg PO DAILY levothyroxine 125 mcg tablet 125 mcg PO DAILY loratadine [Allergy Relief (loratadine)] 10 mg tablet 10 mg PO BID omeprazole 20 mg capsule,delayed release(DR/EC) 20 mg PO DAILY aspirin 325 mg tablet 325 mg PO DAILY Print Language: South Korean Additional Instructions: Medications / Treatment * Continue Colace daily * Use MiraLAX daily until regular, soft bowel movements are achieved * Encourage adequate hydration, which may help both constipation and bladder irritation * May use acetaminophen (Tylenol) as needed for pain Activity * Activity as tolerated * Avoid activities that worsen hip pain * Assist with ambulation as needed due to limp Follow-Up * Follow up with primary care physician within 2?3 days to reassess: * Hip pain * Constipation * Possible bladder inflammation / urinary symptoms * PCP may consider repeat urinalysis or urine culture if symptoms persist * Consider outpatient orthopedic evaluation if hip pain does not improve Return to the Emergency Department Immediately If Any of the Following Occur * Fever or chills * Worsening lower abdominal pain or pelvic pain * Pain or burning with urination, foul-smelling urine, or blood in urine * Inability to urinate or significantly decreased urine output * Worsening hip pain, inability to bear weight, or new swelling * Persistent vomiting or inability to tolerate food or fluids * No bowel movement despite laxatives * Any new or concerning symptoms Referrals: Jose Alberto MD [Primary Care Provider, [facility]] - 1 week Discharge Date/Time: 05/26/25 16:16 Documented by User: Tomasz Rainey DO 05/26/25 17:06 HPI HPI - General Adult General Chief complaint: Urogenital-Female Stated complaint: HIP, BACK & ABD PAIN, URINARY ISSUES Time Seen by Provider: 05/26/25 14:12 Related Data Home Medications ?Medication ?Instructions ?Recorded ?Confirmed aspirin 325 mg tablet 325 mg PO DAILY 05/26/25 fludrocortisone 0.1 mg tablet 0.1 mg PO DAILY 05/26/25 05/26/25 levothyroxine 125 mcg tablet 125 mcg PO DAILY 05/26/25 05/26/25 loratadine 10 mg tablet (Allergy 10 mg PO BID 05/26/25 05/26/25 Relief (loratadine)) omeprazole 20 mg capsule,delayed 20 mg PO DAILY 05/26/25 release Opioid HPI Opioid Management Most Recent Opioid Data: Last Pain Scale 2 Today, 14:25 PFSH PFSH Social History Little interest or pleasure in doing things: not at all Feeling down, depressed, or hopeless: not at all Exam Constitutional Vital Signs, click to edit/add: Last Vital Signs Temp 97.8 F 05/26/25 14:19 Pulse 68 05/26/25 16:08 Resp 16 05/26/25 16:08 BP 153/75 H 05/26/25 16:08 Pulse Ox 98 05/26/25 16:08 O2 Del Method Room Air 05/26/25 16:08 Course Vital Signs Vital signs: Vital Signs Temperature 97.8 F 05/26/25 14:19 Pulse Rate 76 05/26/25 14:19 Respiratory Rate 18 05/26/25 14:19 Blood Pressure 155/76 H 05/26/25 14:19 Pulse Oximetry 100 05/26/25 14:19 Oxygen Delivery Method Room Air 05/26/25 14:19 Temperature 97.8 F 05/26/25 14:19 Pulse Rate 68 05/26/25 16:08 Respiratory Rate 16 05/26/25 16:08 Blood Pressure 153/75 H 05/26/25 16:08 Pulse Oximetry 98 05/26/25 16:08 Oxygen Delivery Method Room Air 05/26/25 16:08 Medical Decision Making MDM Narrative Medical decision making narrative: This is a 44-year-old female with a history of Down syndrome and prior R sided CVA, presenting with several days of left-sided hip and abdominal pain with limp. History was obtained from the patient?s mother due to limited patient communication. Laboratory evaluation was reassuring with a WBC of 4.5 without left shift, normal CMP and lipase, negative hCG, and urinalysis without evidence of infection or hematuria. CT abdomen and pelvis without contrast demonstrated urinary bladder wall thickening, which may represent bladder underdistention versus early cystitis, without evidence of bowel obstruction, appendicitis, or other acute intra-abdominal process. No constipation per my review. Review of a left hip x-ray obtained two days prior showed no fracture or dislocation, though there was increased joint space narrowing on the left compared to the right, consistent with degenerative changes. Given the absence of systemic signs of infection, normal laboratory studies, and stable clinical presentation, no acute surgical or orthopedic intervention was indicated. She is still able to ambulate with unassisted, with a mild limp. Results discussed with patient and her mother. The patient was felt to be stable for discharge with symptomatic management of constipation and pain, close outpatient follow-up with her primary care physician, and strict return precautions were discussed. FINAL IMPRESSION: #Acute left-sided musculoskeletal back pain #Acute limp, unclear etiology DISPOSITION: Discharged home CONDITION: Good Lab Data Labs: Lab Results 05/26/25 05/26/25 Range/Units 14:42 14:48 WBC 4.5 (4.0-11.0) 10^3/uL RBC 4.08 L (4.20-5.40) 10^6/uL Hgb 13.9 (12.0-16.0) g/dL Hct 41.3 (36.0-48.0) % MCV 101.2 H (81.0-99.0) fL MCH 34.1 H (26.7-34.0) pg MCHC 33.7 (29.9-35.2) g/dL RDW 13.4 (11.0-15.0) % Plt Count 250 (150-450) 10^3/uL MPV 10.1 (9.5-13.5) fL Neut % (Auto) 61.1 (43.0-75.0) % Lymph % (Auto) 25.1 (20.5-60.0) % [place] % (Auto) 9.6 (1.7-12.0) % Eos % (Auto) 2.5 (0.9-7.0) % Baso % (Auto) 1.3 (0.2-2.0) % Neut # (Auto) 2.7 (1.4-6.5) 10^3/uL Lymph # (Auto) 1.1 L (1.2-3.8) 10^3/uL [place] # (Auto) 0.4 (0.3-0.8) 10^3/uL Eos # (Auto) 0.1 (0.0-0.7) 10^3/uL Baso # (Auto) 0.1 (0.0-0.1) 10^3/uL Abs Immat Gran (auto) 0.02 (0.00-0.03) 10^3/uL Imm/Tot Granulo (auto) 0.4 (0.0-0.5) % Sodium 142 (136-145) mmol/L Potassium 3.9 (3.5-5.1) mmol/L Chloride 106 (98-107) mmol/L Carbon Dioxide 31.5 (21.0-32.0) mmol/L Anion Gap 8.4 BUN 11.0 (7.0-18.0) mg/dL Creatinine 0.85 (0.55-1.02) mg/dL Est GFR ( Amer) >60 (>=60 mL/min/1.73m^2) Est GFR (Non-Af Amer) >60 (>=60 mL/min/1.73m^2) BUN/Creatinine Ratio 12.9 Glucose 69 L (74-106) mg/dL Calcium 8.7 (8.5-10.1) mg/dL Total Bilirubin 0.3 (0.2-1.0) mg/dL AST 15 (15-37) U/L ALT 18 (14-59) U/L Alkaline Phosphatase 97 (46-116) U/L Total Protein 7.0 (6.4-8.2) g/dL Albumin 3.1 L (3.4-5.0) g/dL Globulin 3.9 g/dL Albumin/Globulin Ratio 0.8 Lipase 34.0 (16.0-77.0) U/L Serum HCG, Qual Negative (NEGATIVE) Urine Color Lt. yellow (YELLOW) Urine Clarity Clear (CLEAR) Urine pH 6.0 (5.0-9.0) Ur Specific [place] <=1.005 A (1.005-1.025) Urine Protein Negative (NEG/TRACE) mg/dL Urine Glucose (UA) Negative (NEGATIVE) mg/dL Urine Ketones Negative (NEGATIVE) mg/dL Urine Occult Blood Negative (NEGATIVE) Urine Nitrite Negative (NEGATIVE) Urine Bilirubin Negative (NEGATIVE) Urine Urobilinogen 0.2 (0.2-1.0) EU/dL Ur Leukocyte Esterase Negative (NEGATIVE) Imaging Data CT scan - abdomen: Radiologist's impression: ITS Impressions Abdomen/Pelvis CT 05/26/25 14:44 IMPRESSION: Urinary bladder wall thickening. Underdistention versus cystitis. Impression dictated by: Jesse Solomon M.D. 05/26/2025 3:48 PM Dictation Location: [facility] Electronically authenticated by: [id number] Y Date: 05/26/2025 15:48 Discharge Plan Discharge Chief Complaint: Urogenital-Female Clinical Impression: Limping without localized cause, Musculoskeletal back pain Patient Disposition: Home, Self-Care Time of Disposition Decision: 16:04 Condition: Good Mode of Transportation: Private Vehicle Prescriptions / Home Meds: No Action fludrocortisone 0.1 mg tablet 0.1 mg PO DAILY levothyroxine 125 mcg tablet 125 mcg PO DAILY loratadine [Allergy Relief (loratadine)] 10 mg tablet 10 mg PO BID omeprazole 20 mg capsule,delayed release(DR/EC) 20 mg PO DAILY aspirin 325 mg tablet 325 mg PO DAILY Print Language: South Korean Additional Instructions: Medications / Treatment * Continue Colace daily * Use MiraLAX daily until regular, soft bowel movements are achieved * Encourage adequate hydration, which may help both constipation and bladder irritation * May use acetaminophen (Tylenol) as needed for pain Activity * Activity as tolerated * Avoid activities that worsen hip pain * Assist with ambulation as needed due to limp Follow-Up * Follow up with primary care physician within 2?3 days to reassess: * Hip pain * Constipation * Possible bladder inflammation / urinary symptoms * PCP may consider repeat urinalysis or urine culture if symptoms persist * Consider outpatient orthopedic evaluation if hip pain does not improve Return to the Emergency Department Immediately If Any of the Following Occur * Fever or chills * Worsening lower abdominal pain or pelvic pain * Pain or burning with urination, foul-smelling urine, or blood in urine * Inability to urinate or significantly decreased urine output * Worsening hip pain, inability to bear weight, or new swelling * Persistent vomiting or inability to tolerate food or fluids * No bowel movement despite laxatives * Any new or concerning symptoms Referrals: Jose Alberto MD [Primary Care Provider, [facility]] - 1 week Discharge Date/Time: 05/26/25 16:16
--- NOTE | 2025-05-26 14:44 | CT_ITS ---
The [address] [address] Patient Name: APRIL LINARES MRN: [id number] date: 1980 Sex: F Assigned Patient Location: ER Current Patient Location: ER Accession/Order Number: [id number] Exam Date: 05/26/2025 15:00 Report Date: 05/26/2025 15:48 At the request of: LISSETT ROBERTS Procedure: CT abdomen pelvis wo con CT Abdomen and Pelvis withoutcontrast TECHNIQUE: Axial imaging with 2-D reconstruction. The CT exam was performed using one or more the following dose reduction techniques: Automated exposure control, adjustment of the MA and/or Kv according to patient size, or use of the iterative reconstruction technique. COMPARISON: None History: Left lower quadrant pain. Left hip pain. LIMITATIONS: None LOWER THORAX mild basilar groundglass parenchymal changes. No pleural effusion. LIVER: Unremarkable GALLBLADDER: No gallbladder abnormality identified. BILE DUCTS: No dilatation SPLEEN: Unremarkable PANCREAS: Unremarkable ADRENAL GLANDS: Unremarkable KIDNEYS:Unremarkable AORTA: No abdominal aortic aneurysm identified. RETROPERITONEUM: No significant retroperitoneal abnormalities identified. MESENTERY:Unremarkable STOMACH:Unremarkable SMALL BOWEL: The small bowel loops are nondistended. APPENDIX: The appendix is normal. COLON: Unremarkable URINARY BLADDER: Urinary bladder wall thickening. Underdistention versus cystitis REPRODUCTIVE SYSTEM: Reproductive structures are unremarkable. PNEUMOPERITONEUM: None PERITONEAL FLUID:None BONY STRUCTURES: Unremarkable ABDOMINAL WALL: Small fat-containing umbilical hernia. CT/CT abdomen pelvis wo con IMPRESSION: Urinary bladder wall thickening. Underdistention versus cystitis. Impression dictated by: Jesse Solomon M.D. 05/26/2025 3:48 PM Dictation Location: [employer] Electronically authenticated by: [id number] Y Date: 05/26/2025 15:48
[2025-05-26 14:58] LABS: Hematocrit 41.3 % (36.0-48.0); Hemoglobin 13.9 g/dL (12.0-16.0); Immature Granulocytes Abs Auto 0.02 10^3/uL (0.00-0.03); Immature Granulocytes Pct Auto 0.4 % (0.0-0.5); Lymphocytes Absolute Auto 1.1 10^3/uL (1.2-3.8); Mean Corpuscular HGB Conc 33.7 g/dL (29.9-35.2); Mean Corpuscular Hemoglobin 34.1 pg (26.7-34.0); Mean Corpuscular Volume 101.2 fL (81.0-99.0); Platelet Count 250 10^3/uL (150-450); Red Blood Count 4.08 10^6/uL (4.20-5.40); White Blood Count 4.5 10^3/uL (4.0-11.0)
[2025-05-26 15:01] LABS: Glucose Urine UA NEGATIVE (NEGATIVE)
[2025-05-26 15:17] LABS: Alanine Aminotransferase 18 U/L (14-59); Albumin Globulin Ratio 0.8; Albumin Level 3.1 g/dL (3.4-5.0); Alkaline Phosphatase 97 U/L (46-116); Anion Gap 8.4; Aspartate Amino Transferase 15 U/L (15-37); Blood Urea Nitrogen 11.0 mg/dL (7.0-18.0); Calcium 8.7 mg/dL (8.5-10.1); Carbon Dioxide 31.5 mmol/L (21.0-32.0); Chloride 106 mmol/L (98-107); Estimated GFR (African America >60 (>=60 mL/min/1.73m^2); Estimated GFR (Non-African Ame >60 (>=60 mL/min/1.73m^2); Globulin 3.9 g/dL; Glucose 69 mg/dL (74-106); Lipase 34.0 U/L (16.0-77.0); Potassium 3.9 mmol/L (3.5-5.1); Sodium 142 mmol/L (136-145); Total Protein 7.0 g/dL (6.4-8.2)
[2025-05-26 16:08] VITALS: BP 153/75; PULSE 68; O2SAT 98
== END 2025-05-26 16:16 | disposition home or self-care (01) ==
PROVIDERS: Physician Assistant; Emergency Provider Student in an Organized Health Care Education/Training Program; PCP Family Medicine
DX: M54.9 Dorsalgia, unspecified (principal); R26.89 Other abnormalities of gait and mobility; Q90.9 Down syndrome, unspecified; Z86.73 Personal history of transient ischemic attack (TIA), and cerebral infarction without residual deficits
CPT/HCPCS: 36415; 74176; 80053; 81003; 83690; 84703; 85025; 99284; 99285